=== PATIENT | female | born 1970 | race American Indian/Alaskan Native ===

== ENCOUNTER 2021-12-26 10:45 | Emergency (ER) | payer SELFPAY ==
[2021-12-26 11:06] VITALS: BP 150/90
--- NOTE | 2021-12-26 11:34 | XRay Report ---
CHEST 2 VIEWS INDICATION / CLINICAL INFORMATION: SOB. COMPARISON: None available. FINDINGS: SUPPORT DEVICES: None. HEART / MEDIASTINUM: No significant abnormality. LUNGS / PLEURA: No significant pulmonary or pleural abnormality. No pneumothorax. ADDITIONAL FINDINGS: No significant additional findings. IMPRESSION: 1. No acute findings. Signer Name: Jose Maria Giraldo MD Signed: 12/26/2021 11:30 AM Workstation Name: [id number]
--- NOTE | 2021-12-26 14:44 | Event Note ---
ED Screening Note ED Screening Note: 51 YO COMES TO ER WITH FLU LIKE SYMPTOMS THEN AT WORK GOT WEAK AND DIZZY CP TO LA ALSO LEG PAIN DENIES DAILY HX PMH OBESE, HIGH CHOLESTEROL FAM HX CAD PSH CSEC/BREAST REDUCTION This initial assessment/diagnostic orders/clinical plan/treatment(s) is/are subject to change based on patients health status, clinical progression and re- assessment by fellow clinical providers in the ED. Further treatment and workup at subsequent clinical providers discretion. Patient/guardian urged not to elope from the ED as their condition may be serious if not clinically assessed and managed. Initial orders include: RO ACS
[2021-12-26 15:49] LABS: Hematocrit 38.8 % (30.3-42.9); Hemoglobin 12.5 gm/dl (10.1-14.3); Mean Corpuscular HGB Conc 32 % (30-34); Mean Corpuscular Volume 81 fl (79-97); Platelet Count 299 K/mm3 (140-440); Red Blood Count 4.81 M/mm3 (3.65-5.03); Red Cell Distribution Width 16.8 % (13.2-15.2)
[2021-12-26 16:03] LABS: Alanine Aminotransferase 20 units/L (7-56); Albumin 4.4 g/dL (3.9-5); BUN/Creatinine Ratio 22; Blood Urea Nitrogen 11 mg/dL (7-17); Calcium 9.7 mg/dL (8.4-10.2); Hemolysis Index 3
[2021-12-26] MEDS ORDERED: IBUPROFEN 800 MG TAB PO ONE (17:01)
--- NOTE | 2021-12-26 17:02 | Emergency Department Report ---
ED General Adult HPI - General Chief complaint: Chest Pain Stated complaint: DIFFICULTY BREATHING Time Seen by Provider: 12/26/21 13:44 Source: patient, EMS Mode of arrival: Stretcher Limitations: No Limitations - History of Present Illness Severity scale (0 -10): 0 - Related Data Previous Rx's Medication Instructions Recorded Last Taken Type Cetirizine HCl [ZyrTEC] 10 mg PO DAILY #30 capsule 12/26/21 Unknown Rx Fluticasone [Flonase] 1 spray NS QDAY #1 bottle 12/26/21 Unknown Rx methylPREDNISolone [Medrol 4MG 4 mg PO FS #1 tab.ds.pk 12/26/21 Unknown Rx DOSEPAK (21 tabs)] Allergies Allergy/AdvReac Type Severity Reaction Status Date / Time No Known Allergies Allergy Verified 12/26/21 11:06 ED Review of Systems ROS: Stated complaint: DIFFICULTY BREATHING Other details as noted in HPI Comment: All other systems reviewed and negative ED Past Medical Hx - Past Medical History Previous Medical History?: Yes Hx Congestive Heart Failure: No Hx Diabetes: No Hx Asthma: No Hx COPD: No Additional medical history: HLD - Surgical History Past Surgical History?: Yes Additional Surgical History: Bilateral breast reduction. - Family History Family history: other (MOTHER CAD) - Social History Smoking Status: Never Smoker Substance Use Type: None - Medications Home Medications: Home Medications Medication Instructions Recorded Confirmed Last Taken Type Cetirizine HCl [ZyrTEC] 10 mg PO DAILY #30 capsule 12/26/21 Unknown Rx Fluticasone [Flonase] 1 spray NS QDAY #1 bottle 12/26/21 Unknown Rx methylPREDNISolone [Medrol 4MG 4 mg PO FS #1 tab.ds.pk 12/26/21 Unknown Rx DOSEPAK (21 tabs)] ED Physical Exam - General Limitations: No Limitations General appearance: alert, in no apparent distress - Head Head exam: Present: atraumatic, normocephalic - Eye Eye exam: Present: normal appearance - ENT ENT exam: Present: mucous membranes moist - Neck Neck exam: Present: normal inspection - Respiratory Respiratory exam: Present: normal lung sounds bilaterally. Absent: respiratory distress - Cardiovascular Cardiovascular Exam: Present: regular rate, normal rhythm. Absent: systolic murmur, diastolic murmur, rubs, gallop - GI/Abdominal GI/Abdominal exam: Present: soft, normal bowel sounds - Extremities Exam Extremities exam: Present: normal inspection - Back Exam Back exam: Present: normal inspection - Neurological Exam Neurological exam: Present: alert, oriented X3 - Psychiatric Psychiatric exam: Present: normal affect, normal mood - Skin Skin exam: Present: warm, dry, intact, normal color. Absent: rash ED Course Vital Signs 12/26/21 10:46 Temperature 98.4 F Pulse Rate 88 Respiratory 16 Rate Blood Pressure 150/90 [Left] O2 Sat by Pulse 98 Oximetry ED Medical Decision Making - Lab Data Result diagrams: 12/26/21 15:19 12/26/21 15:19 - EKG Data -: EKG Interpreted by Sd EKG shows normal: sinus rhythm Rate: normal - EKG Data When compared to previous EKG there are: no significant change Interpretation: no acute changes - Radiology Data Radiology results: report reviewed, image reviewed - Medical Decision Making Labs 12/26/21 12/26/21 15:19 15:19 WBC 7.2 RBC 4.81 Hgb 12.5 Hct 38.8 MCV 81 MCH 26 L MCHC 32 RDW 16.8 H Plt Count 299 Lymph % (Auto) Director Medical Seg Neutrophils % Director Medical Sodium 143 Potassium 4.1 Chloride 106.5 Carbon Dioxide 24 Anion Gap 17 BUN 11 Creatinine 0.5 L Estimated GFR > 60 BUN/Creatinine Ratio 22 Glucose 94 Calcium 9.7 Total Bilirubin < 0.20 AST 17 ALT 20 Alkaline Phosphatase 123 Troponin T < 0.010 Total Protein 7.8 Albumin 4.4 Albumin/Globulin Ratio 1.3 Vital Signs 12/26/21 10:46 Temperature 98.4 F Pulse Rate 88 Respiratory 16 Rate Blood Pressure 150/90 [Left] O2 Sat by Pulse 98 Oximetry Critical care attestation.: If time is entered above; I have spent that time in minutes in the direct care of this critically ill patient, excluding procedure time. ED Disposition Clinical Impression: URI (upper respiratory infection) Disposition: 01 HOME / SELF CARE / HOMELESS Is pt being admited?: No Does the pt Need Aspirin: No Condition: Stable Instructions: Upper Respiratory Infection, Adult, [id number] Referrals: PRIMARY CAREMD [Primary Care Provider] - 3-5 Days TATYANA SILVERIO MD [Staff Physician] - 3-5 Days Forms: Work/School Release Form(ED) Time of Disposition: 17:01
[2021-12-26 17:34] LABS: Basophils % (Manual) 0 % (0.0-1.8); Eosinophils % (Manual) 0 % (0.0-4.3); Total Cells Counted 100
[2021-12-26 17:35] LABS: Platelet Estimate Consistent w Auto; RBC Morphology Normal
== END 2021-12-26 19:27 | disposition home or self-care (01) ==
LOC: ED 10:45
DX: J06.9 Acute upper respiratory infection, unspecified (principal); Z98.890 Other specified postprocedural states
CPT/HCPCS: 36415; 71046; 80053; 84484; 85007; 85025; 93005; 99284